=== PATIENT | female | born 1995 | race Caucasian/White ===

== ENCOUNTER 2018-02-16 17:10 | Emergency (ER) | payer OTHER, SELFPAY ==
[2018-02-16 17:14] VITALS: BP 118/79; PULSE 77; RESP 20; TEMP 37.1; O2SAT 100; BMI 21.9
[2018-02-16 18:03] VITALS: BP 125/60; PULSE 96; RESP 18; TEMP 36.8; O2SAT 100; BMI 21.9
--- NOTE | 2018-02-16 18:55 | HMH.EDUTC ---
[facility] Disposition Clinical Impression: Vaginal discharge Disposition: Home, Self-Care Condition on Discharge: Good Instructions: DI for Vaginal Discharge Additional Instructions: Follow up with OBGYN as advised in the [facility] today Follow up with family doctor for results of send out test as discussed in [facility] If symptoms worsen follow up with family doctor immediately or OBGYN for pelvic exam and treatment as discussed If any life threatening symptoms straight to ER Referrals: Ev Diaz MD [Primary Care Provider] - Time of Disposition: 19:15 Medical Decision Making - Medical Records Medical records reviewed: Yes: I reviewed the patient's medical records. - [facility] Inquiry Pt receiving controlled substance: No Reason not queried -: [facility] system downtime Vital Signs: 02/16/18 17:14 02/16/18 18:03 Temperature 98.7 F 98.3 F Temperature Source Tympanic Temporal Artery Scan Pulse Rate [Right Radial] 77 96 H Respiratory Rate 20 18 Blood Pressure [Right Arm] 118/79 125/60 Blood Pressure Mean [Right Arm] 92 81 Blood Pressure Source [Right Arm] Automatic Cuff Automatic Cuff Blood Pressure Position [Right Arm] Sitting Sitting 02 Sat by Pulse Oximetry 100 100 Oxygen Delivery Method Room Air Room Air - Lab Data Lab results reviewed: Yes: I reviewed the patient's lab results. - Reevaluation(s) Time: 19:10 Reevaluation #1: Discussed with patient options for treatment Patient has appointment on Friday for Vaginal exam by OBGYN State that she does not want to exams, Discussed other testing and options for patient if she did not want to have pap done here today. Urine collected and Urine preg. completed along with urine sent to lab for testing for Chlamydia and Gonnorhea due to unprotected sex, denies vaginal pain, denies odor to discharge, state that discharge is sometimes white, the thin, then sticky and constantly changing Recommended that patient call OBGYN and see if they may can work her in sooner. [facility] HPI - General Stated complaint: Cramping, Discharge, IUD Placed Time Seen by Provider: 02/16/18 19:00 Mode of Arrival: Ambulatory Source of Information: Patient Limitations: No Limitations Description of Symptoms (Recalled from Triage Doc. by RN): VAGINAL DISCHARGE HEENT Symptoms (Recalled from RN notes): No Resp Symptoms (Recalled from RN notes): No Skin Symptoms (Recalled from RN notes): No MS Symptoms (Recalled from RN notes): No Functional Status (Recalled from RN notes): N - History of Present Illness Provider Complaint: Patient states that she has noticed that for the last week she has been having a slight discharge from her vagina State that she had an IUD placed about 3 years ago and then about a week ago she began to have a slight discharge State that she has called the clinic that put in the IUD and they will see her next week and she has tried several other clinics and no one would see her where they didn't place the IUD State that she is not having any vaginal pain or bleeding States that she was worried where they couldn't see her till next week so she came into the clinic to get checked - Related Data Allergies Allergy/AdvReac Type Severity Reaction Status Date / Time No Known Allergies Allergy Verified 02/16/18 18:09 - Worker's Comp Is this a Worker's Comp case?: No [facility] History I have reviewed the patient's past medical history: Yes - Social History Alcohol Intake: never - Psychiatric History Expresses thoughts of harming self/others: None Suicide Plan Description: No Plan ROS Obtained: Yes All systems reviewed & no additional complaints - Genitourinary Female Genitourinary: Reports vaginal discharge, Denies vaginal dryness, Denies vaginal odor, Denies vaginal itching Physical Exam - General General appearance: alert, in no apparent distress - Respiratory Respiratory exam: Present: normal lung sounds bilaterally. Absent: respiratory distress - Cardiovascu
[2018-02-16 19:06] VITALS: BP 125/60; PULSE 96; RESP 18; TEMP 36.8
--- NOTE | 2018-02-16 19:08 | ED_ITS ---
[facility] [place] Dis[place] Clinical Impression: Vaginal discharge Disposition: Home, Self-Care Condition on Discharge: Good Instructions: DI for Vaginal Discharge Additional Instructions: Follow up with OBGYN as advised in the [facility] today Follow up with family doctor for results of send out test as discussed in [facility] If symptoms worsen follow up with family doctor immediately or OBGYN for pelvic exam and treatment as discussed If any life threatening symptoms straight to ER Referrals: Ev Diaz MD [Primary Care Provider] - Time of Disposition: 19:15 Medical Decision Making - Medical Records Medical records reviewed: Yes: I reviewed the patient's medical records. - [facility] Inquiry Pt receiving controlled substance: No Reason not queried -: [facility] system downtime Vital Signs: 02/16/18 17:14 02/16/18 18:03 Temperature 98.7 F 98.3 F Temperature Source Tympanic Temporal Artery Scan Pulse Rate [Right Radial] 77 96 H Respiratory Rate 20 18 Blood Pressure [Right Arm] 118/79 125/60 Blood Pressure Mean [Right Arm] 92 81 Blood Pressure Source [Right Arm] Automatic Cuff Automatic Cuff Blood Pressure Position [Right Arm] Sitting Sitting 02 Sat by Pulse Oximetry 100 100 Oxygen Delivery Method Room Air Room Air - Lab Data Lab results reviewed: Yes: I reviewed the patient's lab results. - Reevaluation(s) Time: 19:10 Reevaluation #1: Discussed with patient options for treatment Patient has appointment on Friday for Vaginal exam by OBGYN State that she does not want to exams, Discussed other testing and options for patient if she did not want to have pap done here today. Urine collected and Urine preg. completed along with urine sent to lab for testing for Chlamydia and Gonnorhea due to unprotected sex, denies vaginal pain, denies odor to discharge, state that discharge is sometimes white, the thin, then sticky and constantly changing Recommended that patient call OBGYN and see if they may can work her in sooner. [facility] [place] HPI - General Stated complaint: Cramping, Discharge, IUD Placed Time Seen by Provider: 02/16/18 19:00 Mode of Arrival: Ambulatory Source of Information: Patient Limitations: No Limitations Description of Symptoms (Recalled from Triage Doc. by RN): VAGINAL DISCHARGE HEENT Symptoms (Recalled from RN notes): No Resp Symptoms (Recalled from RN notes): No Skin Symptoms (Recalled from RN notes): No MS Symptoms (Recalled from RN notes): No Functional Status (Recalled from RN notes): N - History of Present Illness Provider Complaint: Patient states that she has noticed that for the last week she has been having a slight discharge from her vagina State that she had an IUD placed about 3 years ago and then about a week ago she began to have a slight discharge State that she has called the clinic that put in the IUD and they will see her next week and she has tried several other clinics and no one would see her where they didn't place the IUD State that she is not having any vaginal pain or bleeding States that she was worried where they couldn't see her till next week so she came into the clinic to get checked - Related Data Allergies Allergy/AdvReac Type Severity Reaction Status Date / Time No Known Allergies Allergy Verified 02/16/18 18:09 - Worker's Comp Is this a Worker's Comp case?: No [facility] History I have reviewed the patient's past medical history: Yes - Social History Alcohol Intake: nev
[2018-02-16 19:13] LABS: Apearance,Urine Clear (Clear); Blood, Urine Negative (Negative); Color,Urine Yellow (Yellow); Glucose,Urine (UA) Negative (Negative); Ketones,Urine Negative (Negative); Protein,Urine Negative (Negative); Specific Gravity, Urine 1.015 (1.005-1.030)
[2018-02-16 19:14] LABS: Bilirubin,Urine Negative (Negative); UTC Leukocyte Esterase,Urine Negative (Negative); UTC Nitrate,Urine Negative (Negative); Urobilinogen,Urine 0.2 EU/dl (0.2)
[2018-02-16 19:15] LABS: UTC Pregnancy Test, Urine Negative (Negative)
[2018-02-19 09:28] LABS: Neisseria gonorrhoeae, NAA Negative (Negative)
== END 2018-02-16 19:19 | disposition home or self-care (01) ==
LOC: ER 17:23 → UTC 17:25
PROVIDERS: Emergency Provider Nurse Practitioner; PCP Family Medicine
DX: N89.8 Other specified noninflammatory disorders of vagina (principal)
CPT/HCPCS: 81003; 81025; 87491; 87591; 99201

== ENCOUNTER → 2018-11-03 14:31 | Outpatient (POV) | payer OTHER, SELFPAY | PROVIDERS: Visit Provider Dermatology | DX: Z00.00 Encounter for general adult medical examination without abnormal findings (principal) ==

== ENCOUNTER → 2021-01-09 09:15 | Outpatient (CLI) | payer SELFPAY ==
[2021-01-09 09:38] LABS: Basophils # 0.1 K/mm3 (0-0.2); Basophils % 1.2 % (0.1-2.0); Eosinophils # 0.1 K/mm3 (0.0-0.4); Eosinophils % 2.3 % (0.1-12.0); Hematocrit 41.8 % (37.0-47.0); Hemoglobin 13.8 g/dL (12.2-16.2); Lymphocytes # 1.5 K/mm3 (0.7-4.5); Lymphocytes % 28.4 % (10-50); Mean Corpuscular Hemoglobin 29.9 pg (27.0-31.2); Mean Corpuscular Volume 90.6 fl (81-99); Mean Platelet Volume 9.5 fl (7.4-10.4); Monocytes # 0.3 K/mm3 (0.1-1.0); Monocytes % 6.3 % (1.7-9.3); Neutrophils # 3.3 K/mm3 (1.8-7.8); Neutrophils % 61.7 % (37.0-80.0); Platelet Count 207 K/mm3 (142-424); Red Blood Count 4.61 M/mm3 (4.20-5.40); Red Cell Distribution Width 13.2 % (11.5-17.5); White Blood Count 5.4 K/mm3 (4.8-10.8)
[2021-01-09 10:12] LABS: Triiodothryronine (T3) Uptake 32 % (23.5-40.5)
[2021-01-09 10:13] LABS: Free Thyroxine Index 2.1 ug/dL (5.93-13.13); T4 (Thyroxine) 6.7 ug/dl (5.53-11.0)
[2021-01-09 10:27] LABS: Thyroid Stimulating Hormone 3.25 uIU/mL (0.465-4.68)
[2021-01-10 22:07] LABS: Estradiol 67.8 pg/mL (.); FSH 4.8 mIU/mL (.); LH 20.8 mIU/mL (.)
== END ==
PROVIDERS: Visit Provider Nurse Practitioner Obstetrics & Gynecology
DX: N92.6 Irregular menstruation, unspecified (principal); R53.83 Other fatigue
CPT/HCPCS: 36415; 82670; 83001; 83002; 84436; 84443; 84479; 85025

== ENCOUNTER → 2022-09-16 07:52 | Outpatient (CLI) | payer SELFPAY ==
[2022-09-16 09:38] LABS: HCG,Quantitative 4395 mIU/ml (0-5.42)
== END ==
PROVIDERS: PCP Family Medicine; Visit Provider Obstetrics & Gynecology
DX: Z34.90 Encounter for supervision of normal pregnancy, unspecified, unspecified trimester (principal)
CPT/HCPCS: 36415; 84702

== ENCOUNTER → 2022-10-04 16:59 | Outpatient (CLI) | payer SELFPAY | PROVIDERS: Visit Provider Obstetrics & Gynecology | DX: Z34.90 Encounter for supervision of normal pregnancy, unspecified, unspecified trimester (principal) | CPT/HCPCS: 87086 ==

== ENCOUNTER → 2022-10-31 12:48 | Outpatient (CLI) | payer BC, SELFPAY ==
[2022-10-31 13:23] LABS: Basophils % 0.6 % (0.1-2.0); Hematocrit 36.5 % (37.0-47.0); Hemoglobin 11.8 g/dL (12.2-16.2); Lymphocytes # 1.3 K/mm3 (0.7-4.5); Lymphocytes % 29.8 % (10-50); Mean Corpuscular HGB Conc 32.2 g/dL (31.8-35.4); Mean Corpuscular Volume 96.1 fl (81-99); Mean Platelet Volume 10.4 fl (7.4-10.4); Monocytes # 0.3 K/mm3 (0.1-1.0); Monocytes % 5.9 % (1.7-9.3); Neutrophils # 2.6 K/mm3 (1.8-7.8); Neutrophils % 62.6 % (37.0-80.0); Platelet Count 199 K/mm3 (142-424); Red Cell Distribution Width 12.8 % (11.5-17.5); White Blood Count 4.2 K/mm3 (4.8-10.8)
[2022-11-16 21:17] LABS: HIV Screen 4th Generation wRfx Non Reactive; Hepatitis B Surface Antigen Negative; Hepatitis C Antibody <0.1
[2022-11-16 21:18] LABS: Rapid Plasma Reagin Ab Titer Non Reactive; Rubella Antibodies, IgG 1.93
== END ==
PROVIDERS: PCP Family Medicine; Visit Provider Obstetrics & Gynecology
DX: Z34.90 Encounter for supervision of normal pregnancy, unspecified, unspecified trimester (principal)
CPT/HCPCS: 36415; 85025; 86592; 86703; 86762; 86850; 87340; 87380; G0432

== ENCOUNTER → 2023-01-03 13:27 | Outpatient (CLI) | payer OTHER, SELFPAY ==
--- NOTE | 2023-01-03 13:28 | US_ITS ---
FINAL REPORT CLINICAL HISTORY: OB complete FINDINGS: There is a single live intrauterine gestation. Presentation is breech. The cervix is closed and measures 4.1 cm. Placenta is anterior, grade 1. movement is noted. Heart rate is identified and measured at 149 beats per minute. Three-vessel cord with satisfactory umbilical cord insertion. Four-chamber heart is noted. brain and ventricles are unremarkable. Chest and diaphragm are unremarkable. ABDOMEN: Both kidneys are unremarkable. Stomach is unremarkable. SPINE: No anomalies identified. Both arms and legs noted. AMNIOTIC FLUID: Appropriate amount. MEASUREMENTS: ULTRASOUND AGE: 20 weeks 2 days. GESTATION AGE: 20 weeks 5 days. ESTIMATED WEIGHT: 359 g GROWTH PERCENTILE: 34% LMP percentile BPD: 4.5 cm corresponding with 19 weeks 5 days. OFD: 6.2 cm corresponding to 20 weeks 6 days. HC: 16.9 cm corresponding with 19 weeks 4 days. AC: 16.1 cm corresponding with 21 weeks 2 days. FL: 3.2 cm corresponding with 20 weeks 1 days. CEREBELLUM: 2.0 cm corresponding with 20 weeks 3 days. HUMERUS: 3.0 cm corresponding with 20 weeks 1 days. HC/AC: 1.05 CI: 73% FL/BPD: 72% FL/AC: 20% IMPRESSION: Single living IUP with an ultrasound age of 20 weeks 2 days. No gross anomalies noted. Reviewed, Interpreted and Dictated by Dmitriy Borrero III, MD Transcribed by Martha Benitez Authenticated and [facility]
== END ==
PROVIDERS: PCP Family Medicine; Visit Provider Obstetrics & Gynecology
DX: Z34.90 Encounter for supervision of normal pregnancy, unspecified, unspecified trimester (principal); Z3A.19 19 weeks gestation of pregnancy
CPT/HCPCS: 76811

== ENCOUNTER → 2023-02-06 09:28 | Outpatient (CLI) | payer OTHER, SELFPAY ==
[2023-02-06 09:57] LABS: Basophils # 0.1 K/mm3 (0-0.2); Basophils % 0.8 % (0.1-2.0); Eosinophils # 0.1 K/mm3 (0.0-0.4); Hematocrit 34.8 % (37.0-47.0); Hemoglobin 11.7 g/dL (12.2-16.2); Lymphocytes # 1.2 K/mm3 (0.7-4.5); Lymphocytes % 19.6 % (10-50); Mean Corpuscular HGB Conc 33.8 g/dL (31.8-35.4); Mean Corpuscular Hemoglobin 31.2 pg (27.0-31.2); Mean Corpuscular Volume 92.5 fl (81-99); Mean Platelet Volume 9.9 fl (7.4-10.4); Monocytes # 0.4 K/mm3 (0.1-1.0); Neutrophils # 4.5 K/mm3 (1.8-7.8); Neutrophils % 72.6 % (37.0-80.0); Platelet Count 184 K/mm3 (142-424); Red Blood Count 3.76 M/mm3 (4.20-5.40); Red Cell Distribution Width 13.6 % (11.5-17.5); White Blood Count 6.2 K/mm3 (4.8-10.8)
[2023-02-06 10:15] LABS: Glucose,Fasting 77 mg/dl (74-100)
[2023-02-06 11:48] LABS: Glucose 1 Hour 75 mg/dL (74-100)
== END ==
PROVIDERS: PCP Family Medicine; Visit Provider Obstetrics & Gynecology
DX: Z34.90 Encounter for supervision of normal pregnancy, unspecified, unspecified trimester (principal); Z3A.19 19 weeks gestation of pregnancy
CPT/HCPCS: 36415; 82951; 85025

== ENCOUNTER 2023-03-26 10:23 | Outpatient (CLI) | payer OTHER, SELFPAY | END 2023-03-26 12:10 | disposition home or self-care (01) | LOC: LAB 10:24 → INF 12:47 | PROVIDERS: PCP Family Medicine; Visit Provider Obstetrics & Gynecology | DX: O26.899 Other specified pregnancy related conditions, unspecified trimester (principal); Z67.91 Unspecified blood type, Rh negative | CPT/HCPCS: 36415; 96372; J2790 ==

== ENCOUNTER → 2023-03-28 08:57 | Outpatient (CLI) | payer OTHER, SELFPAY ==
--- NOTE | 2023-03-28 08:57 | US_ITS ---
FINAL REPORT CLINICAL HISTORY: sga COMPARISON: 01/03/2023 FINDINGS: There is a single live intrauterine gestation. Presentation is cephalic. The cervix is closed and measures 3.2 cm. Placenta is anterior grade 1. movement is noted. heart rate documented at 135 beats per minute. Three-vessel cord with satisfactory umbilical cord insertion. Four-chamber heart is noted. brain and ventricles are unremarkable. Chest and diaphragm are unremarkable. ABDOMEN: Both kidneys are unremarkable. Stomach is unremarkable. SPINE: No anomalies identified. AMNIOTIC FLUID: Appropriate amount. MEASUREMENTS: ULTRASOUND AGE: 32 weeks 1 days. GESTATION AGE: 32 weeks 5 days. ESTIMATED WEIGHT: 1870 g GROWTH PERCENTILE: 19 % BPD: 8.06 cm consistent with 32 weeks 3 days. OFD: 10.39 cm consistent with 32 weeks 4 days. HC: 29.21 cm consistent with 32 weeks 2 days. AC: 27.90 cm consistent with 32 weeks 0 days. FL: 6.11 cm consistent with 31 weeks 6 days. HC/AC: 1.05 CI: 78% FL/BPD: 76% FL/AC: 22% IMPRESSION: Single living IUP with an ultrasound age of 32 weeks 1 day. Reviewed, Interpreted and Dictated by Dmitriy Borrero III, MD Transcribed by Janice Daley Authenticated and . [facility]
== END ==
PROVIDERS: PCP Family Medicine; Visit Provider Obstetrics & Gynecology
DX: O36.5990 Maternal care for other known or suspected poor fetal growth, unspecified trimester, not applicable or unspecified (principal)
CPT/HCPCS: 76816

== ENCOUNTER → 2023-03-31 10:25 | Outpatient (CLI) | payer OTHER, SELFPAY ==
--- NOTE | 2023-03-31 10:29 | US_ITS ---
FINAL REPORT CLINICAL HISTORY: SGA/ AND CHECK JUANJO FINDINGS: There is a single live intrauterine gestation. Presentation is cephalic. The cervix measures 3.2 cm. The placenta is anterior. Cardiac activity is confirmed at 155 bpm. BREATHIN MOVEMENT: 2 TONE: 2 FLUID VOLUME: 2 BPP SCORE: 8 JUANJO: 11.56 cm IMPRESSION: Single living IUP with a gestational age of 33 weeks 1 day. Reviewed, Interpreted and Dictated by Zay Yip MD Transcribed by Radha Sherwood Authenticated and [facility]
== END ==
PROVIDERS: PCP Family Medicine; Visit Provider Obstetrics & Gynecology
DX: O36.5990 Maternal care for other known or suspected poor fetal growth, unspecified trimester, not applicable or unspecified (principal)
CPT/HCPCS: 76819

== ENCOUNTER → 2023-04-21 17:04 | Outpatient (CLI) | payer OTHER, SELFPAY | PROVIDERS: Visit Provider Obstetrics & Gynecology | DX: Z34.90 Encounter for supervision of normal pregnancy, unspecified, unspecified trimester (principal) | CPT/HCPCS: 86403 ==

== ENCOUNTER 2023-05-20 07:56 | Inpatient (IN) | payer OTHER, SELFPAY ==
[2023-05-20 08:16] VITALS: BMI 25.9
[2023-05-20 08:43] LABS: Basophils # 0.1 K/mm3 (0-0.2); Basophils % 0.5 % (0.1-2.0); Eosinophils # 0.1 K/mm3 (0.0-0.4); Eosinophils % 0.4 % (0.1-12.0); Hematocrit 40.6 % (37.0-47.0); Hemoglobin 13.9 g/dL (12.2-16.2); Lymphocytes # 2.7 K/mm3 (0.7-4.5); Mean Corpuscular HGB Conc 34.3 g/dL (31.8-35.4); Mean Corpuscular Hemoglobin 31.2 pg (27.0-31.2); Mean Platelet Volume 11.8 fl (7.4-10.4); Monocytes # 0.7 K/mm3 (0.1-1.0); Monocytes % 5.3 % (1.7-9.3); Neutrophils # 8.8 K/mm3 (1.8-7.8); Neutrophils % 71.7 % (37.0-80.0); Platelet Count 180 K/mm3 (142-424); Red Blood Count 4.46 M/mm3 (4.20-5.40); Red Cell Distribution Width 13.8 % (11.5-17.5); White Blood Count 12.3 K/mm3 (4.8-10.8)
--- NOTE | 2023-05-20 08:48 | EXP.OB.APHP ---
OB - H&P: HPI Antepartum History of Present Illness Chief complaint: Leakage of fluid, painful uterine contractions History of present illness: Mrs Brenda Flores is a 28 yo at 40w2d who presents to [facility] Labor and Delivery for leakage of fluid that started at 0400 and regular, painful uterine contractions that started at 0500 this morning. She states contractions are right on top of each other. GBS negative. Baby is very active. History of Present Criteria for establishing EDC:: LMP confirmed by 1st trimester US care: good care Ultrasounds: normal mid trimester US Obstetrical complications: none Medical complications: none Labs Blood type: B (-) negative Rubella: immune RPR/VDRL: nonreactive GBS status: negative HBsAG: negative PFSH [facility] Disclaimer: The information contained in this section may have been updated after the patient was seen, as this information can be updated by other users. Medical History (Updated 05/20/23 @ 09:03 by Shama Mock DO) 40 weeks gestation of Active labor Blood in urine GERD (gastroesophageal reflux disease) Nausea Rh negative state in antepartum period Spontaneous rupture of membranes Surgical History No history of previous surgery Family History Grandfather Hypertension Diabetes Grandmother Cancer Social History Smoking Status: Former smoker alcohol intake: current substance use type: denies use current occupational status: other Travel in the last 8 weeks: None Review of Systems Review of Systems Review of systems:: pertinent systems reviewed and negative unless documented below Meds Home Medications and Allergies Home Medications Medication Instructions Recorded Confirmed Type pantoprazole 40 mg tablet,delayed 40 mg PO DAILY Acid reflux 05/20/23 05/20/23 History release (Protonix) vit no.95-ferrous 1 tab PO DAILY Supplement 05/20/23 05/20/23 History fumarate 28 mg-folic acid 800 mcg tablet () New Prescriptions to Start Prescriptions: Allergies Allergy/AdvReac Type Severity Reaction Status Date / Time No Known Allergies Allergy Verified 05/12/23 11:26 OB - H&P: Exam Constitutional mild distress Routine HEENT Exam Head: Present normocephalic and atraumatic Eye: Absent conjunctivae pink ENT: Present mucous membranes moist and dentition normal Routine Neck Exam Present full ROM Routine Respiratory Exam Present CTA bilaterally and normal respiratory effort Routine Cardiovascular Exam Present RRR Routine Abdominal Exam Present soft (Gravid); Absent tenderness Routine Rectal Exam Patient deferred: visual exam Routine Exam External: Present normal urethra appearance; Absent erythema, swelling, lesions or lacerations Detailed Labor and Delivery Exam Dilation (cm): 9 Effacement (%): 90 Cervix position: anterior station: -1 Consistency: soft Membranes: spontaneously ruptured (0400 at home) Baseline heart rate: 120 terminal operator variability: Moderate (11-25) OB - A/P Antepartum (1) 40 weeks gestation of : Status: Acute (2) Active labor: Status: Acute (3) Spontaneous rupture of membranes: Status: Acute (4) Rh negative state in antepartum period: Status: Acute Additional Plan Planning to breastfeed?: Yes Additional Information:: Admit to [facility] for active labor GBS negative Close monitoring
[2023-05-20 09:00] VITALS: BP 117/60; PULSE 72; RESP 18; TEMP 36.6; O2SAT 98; BMI 25.9
--- NOTE | 2023-05-20 09:04 | EXP.DN ---
Delivery Note Delivery Date:: 05/20/23 Delivery Time:: : Anesthesia Type: None Was labor medically induced?: No Gestational age (weeks): 40 Infant delivered prior to 39 weeks?: No Infant Gender: Male at 1 minute: 9 at 5 minutes: 9 LAC or MLE?: LAC Delivery Procedure:: Mom complete without epidural. Pushed for approximately 12 minutes. Head delivered spontaneously over intact perineum in TRINITY position. No nuchal cord. Anterior shoulder delivered with gentle downward pressure. Posterior shoulder and remainder of body delivered spontaneously. Baby placed on maternal abdomen, mouth and nares bulb suctioned, warmed/dried and stimulated. Delayed cord clamping was performed for 60 seconds. Cord was clamped and cut by mom. Cord blood was obtained. Placenta delivered spontaneously and intact. Small second degree laceration repaired with 3-0 Vicryl. Hemostasis noted. Mom and baby were skin to skin and doing well after delivery. Live male baby (baby's name is Gabriele) APGARs 9, 9 EBL 100 mL Placental Delivery Description: Spontaneous
[2023-05-20 16:25] VITALS: BP 111/61; PULSE 95; RESP 18; TEMP 36.6; O2SAT 100
[2023-05-20 20:40] VITALS: BP 131/65; PULSE 70; RESP 16; TEMP 36.6; O2SAT 99
[2023-05-20 20:56] LABS: Coronavirus 19, PCR Not Detected (NotDetected); Influenza A, PCR Not Detected (NotDetected); Influenza B, PCR Not Detected (NotDetected)
[2023-05-21 04:08] VITALS: BP 121/57; PULSE 65; RESP 16; TEMP 36.6; O2SAT 97
[2023-05-21 08:35] LABS: Microscopic, Urine URINE MICROSCOPIC (MICROSCOPIC)
[2023-05-21 08:49] LABS: Appearance,Urine CLEAR (Clear); Bilirubin,Urine Negative (Negative); Blood, Urine 3+ (Negative); Color,Urine YELLOW (Yellow); Glucose,Urine (UA) Negative (Negative); Ketones,Urine Negative (Negative); Leukocyte Esterase,Urine TRACE (Negative); Nitrate,Urine Negative (Negative); PH,Urine 6.5 (5.0-8.5); Protein,Urine Negative (Negative); Urobilinogen,Urine 0.2 EU/dl (0.2)
[2023-05-21 09:00] LABS: Bacteria,Urine 1+ /lpf; RBC,Urine 20-50 #/hpf (0-3); Squamous Epithelial Cell,Urine Occasional #/hpf (0-5); WBC,Urine Occasional #/hpf (0-3)
[2023-05-21 09:01] LABS: Benzodiazepines Screen,Urine Negative ng/ml (<200)
[2023-05-21 09:02] LABS: Amphetamine/Metha Screen,Urine Negative ng/ml (<1000); Barbiturates Screen,Urine Negative ng/ml (<200)
[2023-05-21 09:03] LABS: Cannabinoid Screen,Urine Negative ng/ml (<50)
[2023-05-21 09:04] LABS: Cocaine Screen,Urine Negative ng/ml (<300); Methadone Screen,Urine Negative ng/ml (<300)
[2023-05-21 09:05] LABS: Opiate Screen,Urine Negative ng/ml (<300)
[2023-05-21 09:06] LABS: Phencyclidine Screen,Urine Negative ng/ml (<25)
--- NOTE | 2023-05-21 09:45 | P.PN_ITS ---
Subjective *Date: 05/21/23 *Time: 09:49 Interval history: PPD # 1 s/p Feeling well. Breast feeding. Appropriate lochia. Voiding without difficulty and passing flatus. Tolerating regular diet. Denies fever/chills, chest pain and shortness of breath. No headaches or vision changes. Denies swelling. Ambulating well ad nakul. Medical Exam Vital signs and Labs for Last 24 Hours: Vital Signs Temp Pulse Resp BP Pulse Ox 05/21/23 04:08 97.9 F 65 16 121/57 L 97 05/20/23 20:40 98 F 70 16 131/65 99 05/20/23 16:25 97.8 F 95 H 18 111/61 100 Laboratory Results - last 24 hr 05/20/23 08:00: Antibody Identification Anti-D 05/20/23 20:48: SARS-CoV-2 (PCR) Not detected, Influenza A Untype (PCR) Not detected, Influenza Type B (PCR) Not detected 05/21/23 08:30: Urine Color Yellow, Urine Appearance Clear, Urine pH 6.5, Ur Specific [place] 1.010, Urine Protein Negative, Urine Glucose (UA) Negative, Urine Ketones Negative, Urine Blood 3+, Urine Nitrate Negative, Urine Bilirubin Negative, Urine Urobilinogen 0.2, Ur Leukocyte Esterase Trace, Urine RBC 20-50, Urine WBC Occasional, Ur Squamous Epith Cells Occasional, Urine Bacteria 1+ 05/21/23 08:30: Urine Opiates Screen Negative, Urine Methadone Screen Negative, Ur Barbituates Screen Negative, Ur Phencyclidine Scrn Negative, Ur Amphetamines Screen Negative, U Benzodiazepines Scrn Negative, Urine Cocaine Screen Negative, U Marijuana (THC) Screen Negative I & O for Labs for Last 24 Hours: Intake & Output 05/18/23 05/19/23 05/20/23 05/21/23 23:59 23:59 23:59 23:59 Weight 141 lb 15.996 oz Head: Present atraumatic and normocephalic ENT: Present normal exam and mucous membranes moist Neck: Present full ROM Respiratory: Present CTA bilaterally and normal respiratory effort Cardiac: Present Reg Rate and Rhythm GI: Present soft and normal bowel sounds; Absent distention or tenderness Comments:: Uterine fundus firm and below umbilicus Rectal (female): Present deferred (female): Present deferred Extremities: Present full ROM; Absent edema or calf tenderness Neuro: Present alert, awake, oriented x 3 and moves all extremities Assessment and Plan *Assessment and plan (1) 40 weeks gestation of : Status: Acute Category: Medical Code(s): Z3A.40 - 40 weeks gestation of (2) Active labor: Status: Acute Category: Medical (3) Spontaneous rupture of membranes: Status: Acute Category: Medical (4) Rh negative state in antepartum period: Status: Acute Category: Medical Code(s): O26.899 - Other specified related conditions, unspecified trimester; Z67.91 - Unspecified blood type, Rh negative Plan Continue routine care Encouraged increased ambulation Baby's ABO RH: AB negative Plan d/c home PPD # 2
[2023-05-21 14:57] LABS: Hematocrit 34.3 % (37.0-47.0); Hemoglobin 11.8 g/dL (12.2-16.2)
[2023-05-22 08:37] VITALS: BP 119/69; PULSE 73; RESP 18; TEMP 36.6; O2SAT 98
--- NOTE | 2023-05-22 08:38 | EXP.DC.SUM ---
General Admission date:: 05/20/23 Discharge date: 05/22/23 HPI HPI HPI: PPD # 2 s/p Sitting comfortably in bed. Pain is controlled. Light lochia. She is breast feeding. Voiding without difficulty and passing flatus. Tolerating regular diet. Denies fever/chills, chest pain and shortness of breath. No headaches or vision changes. Denies swelling. Ambulating well ad nakul. Hospital Course Hospital Course Hospital Course: Mrs Brenda Flores is a 28 yo at 40w2d who presents to [facility] Labor and Delivery for leakage of fluid that started at 0400 and regular, painful uterine contractions that started at 0500 this morning. She states contractions are right on top of each other. GBS negative. Baby is very active. She was admitted for active labor. Upon arrival to L&D she was 8-9 cm dilated, 0 station. She had a normal spontaneous vaginal delivery on 05/20/23 at 0823. She delivered a little boy (baby's name is Gabriele) weighing 7 lb 0 oz. APGARs 9, 9. EBL 100 mL. She did well . Pain controlled. She is breast feeding. Light lochia. Voiding without difficulty and passing flatus. Tolerating regular diet. Denies fever/chills, chest pain and shortness of breath. No headaches or vision changes. Denies swelling. Ambulating well ad nakul. Vital signs stable, afebrile. Heart regular rate and rhythm. Lungs clear to auscultation. Abdomens soft, nontender. No lower extremity edema. Normal hospital course. She was discharged home PPD # 2. Exam Data for Last 24 hours Vital signs and Labs for Last 24 Hours: Temp Pulse Resp BP Pulse Ox 97.9 F 65 16 121/57 L 97 05/21/23 04:08 05/21/23 04:08 05/21/23 04:08 05/21/23 04:08 05/21/23 04:08 Laboratory Results - last 24 hr 05/21/23 08:30: Urine Color Yellow, Urine Appearance Clear, Urine pH 6.5, Ur Specific [address] 1.010, Urine Protein Negative, Urine Glucose (UA) Negative, Urine Ketones Negative, Urine Blood 3+, Urine Nitrate Negative, Urine Bilirubin Negative, Urine Urobilinogen 0.2, Ur Leukocyte Esterase Trace, Urine RBC 20-50, Urine WBC Occasional, Ur Squamous Epith Cells Occasional, Urine Bacteria 1+ 05/21/23 08:30: Urine Opiates Screen Negative, Urine Methadone Screen Negative, Ur Barbituates Screen Negative, Ur Phencyclidine Scrn Negative, Ur Amphetamines Screen Negative, U Benzodiazepines Scrn Negative, Urine Cocaine Screen Negative, U Marijuana (THC) Screen Negative 05/21/23 14:48: Hgb 11.8 L, Hct 34.3 L I & O for Last 24 hours: Intake & Output 05/19/23 05/20/23 05/21/23 05/22/23 23:59 23:59 23:59 23:59 Weight 141 lb 15.996 oz Constitutional Constitutional: no acute distress *Routine HEENT Exam Head: Present normocephalic and atraumatic Eye: Absent conjunctivae pink ENT: Present mucous membranes moist and dentition normal *Routine Neck Exam Neck: Present full ROM *Routine Respiratory Exam Respiratory: Present CTA bilaterally and normal respiratory effort *Routine Cardiovascular Exam Cardiovascular: Present RRR *Routine Abdominal Exam Abdominal: Present soft and normoactive bowel sounds; Absent tenderness or distended *Routine Rectal Exam Patient deferred: visual exam *Routine Exam Patient deferred: external exam *Routine Extremities Exam Extremities: Present full ROM; Absent edema or calf tenderness *Routine Neurological Exam Neurological: Present alert, oriented X3 and moving all extremities Routine Psychiatric Exam Psychiatric: Present normal affect and cooperative Results Data Completed and Pending Labs on day of discharge: Labs from last 24 hours 05/21/23 05/21/23 05/21/23 14:48 08:30 08:30 Hgb 11.8 L Hct 34.3 L Urine Color Yellow Urine Appearance Clear Urine pH 6.[address] 1.010 Urine Protein Negative Urine Glucose (UA) Negative Urine Ketones Negative Urine Blood 3+ Urine Nitrate Negative Urine Bilirubin Negative Urine Urobilinogen 0.2 Ur Leukocyte Esterase Trace Urine RBC 20-50
== END 2023-05-22 12:55 | disposition home or self-care (01) | DRG 807 ==
PROVIDERS: Admitting Provider Obstetrics & Gynecology; Visit Provider Obstetrics & Gynecology
DX: O70.1 Second degree perineal laceration during delivery (principal); Z37.0 Single live birth; Z3A.40 40 weeks gestation of pregnancy
CPT/HCPCS: 59409; 36415; 59025; 80305; 81001; 85014; 85018; 85025; 86850; 86870; 87636; C9803; G0378; U0003; U0005

== ENCOUNTER → 2023-06-10 11:41 | Outpatient (CLI) | payer OTHER, SELFPAY | PROVIDERS: PCP Family Medicine; Visit Provider Nurse Practitioner Obstetrics & Gynecology | DX: Z39.1 Encounter for care and examination of lactating mother (principal) ==

== ENCOUNTER 2024-08-09 09:26 | Outpatient (CLI) | payer OTHER, SELFPAY ==
[2024-08-09 11:02] LABS: Alanine Aminotransferase 11 U/L (12-78); Albumin Level 4.2 g/dl (3.5-5.0); Albumin/Globulin Ratio 1.3 (1.1-1.8); Alkaline Phosphatase 50 U/L (38-126); Anion Gap 9.4 mEq/L (5-15); Aspartate Amino Transferase 21 U/L (14-36); Bilirubin,Total 0.5 mg/dl (0.2-1.3); Blood Urea Nitrogen 15 mg/dl (7-17); Calcium 9.2 mg/dl (8.4-10.2); Carbon Dioxide 26 mmol/L (22.0-30.0); Chloride 106 mmol/L (98-107); Chol/HDL Ratio 3.4 (1-3.5); Cholesterol 203 mg/dl (140-200); Estimated Glomerular Filt Rate 117 ml/min (>60); GFR (African American) 141 ML/MIN (>60); Globulin 3.2 g/dL (1.3-3.2); Glucose 85 mg/dl (74-100); HDL Cholesterol 59 mg/dl (40-60); Potassium 4.4 mmoL/L (3.5-5.1); Sodium 137 mmol/L (136-145); Total Protein,Serum 7.4 g/dl (6.3-8.2); Triglycerides 39 mg/dl (30-150); VLDL Cholesterol 8 mg/dL (0-40)
[2024-08-09 11:14] LABS: Direct LDL Cholesterol 108.54 mg/dL (100-129)
[2024-08-09 11:19] LABS: 25-OH Vitamin D, Total 46.1 ng/mL (30-100)
[2024-08-09 11:26] LABS: Basophils % 0.6 % (0.1-2.0); Eosinophils # 0.1 K/mm3 (0.0-0.4); Eosinophils % 1.4 % (0.1-12.0); Hematocrit 42.9 % (37.0-47.0); Hemoglobin 13.9 g/dL (12.2-16.2); Lymphocytes # 1.7 K/mm3 (0.7-4.5); Lymphocytes % 26.7 % (10-50); Mean Corpuscular HGB Conc 32.3 g/dL (31.8-35.4); Mean Corpuscular Hemoglobin 30.6 pg (27.0-31.2); Mean Corpuscular Volume 94.8 fl (81-99); Mean Platelet Volume 10.2 fl (7.4-10.4); Monocytes # 0.3 K/mm3 (0.1-1.0); Monocytes % 4.4 % (1.7-9.3); Neutrophils # 4.3 K/mm3 (1.8-7.8); Neutrophils % 66.9 % (37.0-80.0); Platelet Count 221 K/mm3 (142-424); Red Blood Count 4.53 M/mm3 (4.20-5.40); Red Cell Distribution Width 13.3 % (11.5-17.5); White Blood Count 6.4 K/mm3 (4.8-10.8)
[2024-08-09 11:33] LABS: Thyroid Stimulating Hormone 3.21 uIU/mL (0.465-4.68)
[2024-08-09 11:53] LABS: Vitamin B12 768 pg/mL (239-931)
== END 2024-08-09 23:59 | disposition home or self-care (01) ==
LOC: LAB 09:28
PROVIDERS: PCP Nurse Practitioner Family; Visit Provider Nurse Practitioner Family
DX: Z00.00 Encounter for general adult medical examination without abnormal findings (principal); L70.0 Acne vulgaris; R53.81 Other malaise; R79.89 Other specified abnormal findings of blood chemistry
CPT/HCPCS: 36415; 80050; 80053; 80061; 82306; 82533; 82607; 82728; 84443; 85025

== ENCOUNTER 2025-11-03 16:01 | Outpatient (CLI) | payer OTHER, SELFPAY ==
[2025-11-03 16:28] LABS: Hematocrit 40.8 % (37.0-47.0); Hemoglobin 13.7 g/dL (12.2-16.2); Immature Granulocytes % 0.1 %; Mean Corpuscular HGB Conc 33.6 g/dL (31.8-35.4); Mean Corpuscular Hemoglobin 30.1 pg (27.0-31.2); Mean Corpuscular Volume 89.7 fl (81-99); Nucleated Red Blood Cells % 0 %; Platelet Count 233 K/mm3 (142-424); Red Blood Count 4.55 M/mm3 (4.20-5.40); Red Cell Distribution Width-SD 40.7 fL; White Blood Count 7.9 K/mm3 (4.8-10.8)
[2025-11-03 17:19] LABS: Alanine Aminotransferase 15 U/L (12-78); Albumin Level 4.9 g/dl (3.5-5.0); Albumin/Globulin Ratio 1.5 (1.1-1.8); Alkaline Phosphatase 59 U/L (38-126); Anion Gap 11.7 mEq/L (5-15); Aspartate Amino Transferase 21 U/L (14-36); Bilirubin,Total 0.6 mg/dl (0.2-1.3); Blood Urea Nitrogen 12 mg/dl (7-17); Calcium 9.6 mg/dl (8.4-10.2); Carbon Dioxide 23 mmol/L (22.0-30.0); Chloride 102 mmol/L (98-107); Creatinine,Serum 0.70 mg/dl (0.52-1.04); Estimated Glomerular Filt Rate 97 ml/min (>60); GFR (African American) 117 ML/MIN (>60); Globulin 3.2 g/dL (1.3-3.2); Glucose 89 mg/dl (74-100); Potassium 3.7 mmoL/L (3.5-5.1); Sodium 133 mmol/L (136-145); Total Protein,Serum 8.1 g/dl (6.3-8.2)
[2025-11-03 17:38] LABS: 25-OH Vitamin D, Total 45.6 ng/mL (30-100)
[2025-11-03 17:47] LABS: Hemoglobin A1C 5.1 % (4.0-6.0)
[2025-11-03 17:49] LABS: Thyroid Stimulating Hormone 3.81 uIU/mL (0.465-4.68)
[2025-11-04 08:16] LABS: FSH 0.5 mIU/mL (.); LH <0.3 mIU/mL (.)
[2025-11-04 11:12] LABS: Testosterone,Total 34 ng/dL (8-60)
== END 2025-11-03 23:59 | disposition home or self-care (01) ==
LOC: LAB 16:02
PROVIDERS: PCP Nurse Practitioner Family; Visit Provider Obstetrics & Gynecology
DX: N92.6 Irregular menstruation, unspecified (principal)
CPT/HCPCS: 36415; 80053; 82166; 82306; 82670; 83001; 83002; 83036; 84144; 84403; 84443; 84702; 85025

== ENCOUNTER 2025-11-18 20:59 | Emergency (ER) | payer OTHER, SELFPAY ==
--- OUTSIDE RECORDS SUMMARY | 2025-01-31 10:45 | XMS_ITS ---
Author Organization [facility] Address [address] [place] [address] Care Team Providers Care Hole Digger Name Role Phone Dorothea Nicolle Primary Care Provider [phone] REASON FOR VISIT Labs Encounters Encounter Location Date Provider Diagnosis [facility] [address] [place] [address] 01/31/2025 Nicolle Piedra Plan Of Treatment No Information Progress Notes * Brenda FLROES LDOB:[birth year] (30 yo F)Acc No.[id number]:01/31/2025 LABS Patient: Brenda DUNBAR Provider: RANJIT Zelaya :1995 A ge:29 Y S ex:Female Date:01/31/2025 Address:[address] [place], [place] [id number] Subjective: * Chief Complaints: * 1 . Labs. * Medical History: Objective: * Vitals: Assessment: Plan: * Treatment: * * Electronic signature of Maricel Piedra APRN on 11/18/2025 at 09:45 PM EST Sign off status: Pending * Provider: RANJIT Zelaya Date: 0 01/31/2025 Generated for Kelsey escobedo/Priscilla/eTransmitting on: 1 01/19/2025 09:45 PM EST
--- OUTSIDE RECORDS SUMMARY | 2025-06-13 04:00 | XMS_ITS ---
Author Organization [facility] Address [address] [place], [place] [address] Care Team Providers Care Call Center Agent Name Role Phone Nicolle Piedra Primary Care Provider Nicolle Medina Unavailable [phone] REASON FOR VISIT 1 week F/U Encounters Encounter Location Date Provider Diagnosis [facility] [address] [place], [place] [address] 06/13/2025 Nicolle Medina Plan Of Treatment No Information Progress Notes * Brenda FLORES LDOB:[birth year] (30 yo F)Acc No.[id number]:06/13/2025 Progress Notes Patient: Brenda DUNBAR Provider: JOHNNA Cedillo :1995 A ge:30 Y S ex:Female Date:06/13/2025 Address:[address] [place] [address] [place], [id number] Pcp:Nicolle Piedra Subjective: * Chief Complaints: * 1 . 1 week F/U. * Medical History: Objective: * Vitals: Assessment: Plan: * Treatment: * * Electronic signature of Maricel Medina PA-C on 11/18/2025 at 09:45 PM EST Sign off status: Pending * Provider: JOHNNA Cedillo Date: 0 06/13/2025 Generated for Printi ng/Faxing/eTransmitting on: 1 01/19/2025 09:45 PM EST
[2025-11-18 21:07] VITALS: BP 111/82; PULSE 101; RESP 16; TEMP 37.2; O2SAT 99; BMI 24.5
--- NOTE | 2025-11-18 21:13 | HMH.EDGENADL ---
Discharge Plan Disposition Patient Disposition: Home, Self-Care Prescriptions Prescriptions: New nitrofurantoin monohyd/m-cryst [Macrobid] 100 mg capsule 100 mg PO BID 5 Days Qty: 10 0RF Rx Instructions: must administer with a meal/food No Action Classic 28 mg iron- 800 mcg tablet 1 tab PO DAILY promethazine 12.5 mg tablet 12.5 mg PO TID PRN (Reason: nausea and vomiting) Qty: 90 0RF Referrals Follow up/Referrals: Nicolle Piedra APRN [Primary Care Provider, Medical] - See instructions Activity Restrictions/Add. Instructions Additional Instructions/Restrictions: Continue to take your promethazine as prescribed. Continue to hydrate well by drinking plenty of fluids. You were also found to have bacteria in your urine and are being prescribed a course of antibiotics. Take this as prescribed. If you develop any new or worsening symptoms, or if you become concerned for your help for any reason, return to the emergency department for evaluation Clinical Impressions Clinical Impression: Nausea and vomiting during prior to 22 weeks gestation, Asymptomatic bacteriuria during Instructions Patient Instructions: DI for Diarrhea and Traveler's Diarrhea in Adults, DI for Diarrhea and Traveler's Diarrhea in Children, DI for Nausea in Adults, DI for Nausea in Children Print Language Print Language: Wolof Discharge ED Provider: Duke Sinha Adult HPI General Chief complaint: Nausea/Vomiting/Diarrhea Stated complaint: 6 weeks ,vomiting Time Seen by Provider: 11/18/25 21:03 Mode of Arrival: Ambulatory Source of Information: Patient Description of Symptoms (Recalled from ER Triage Doc. by RN): Pt states she has been unable to keep anything down since last night. Pt is 6 weeks and states this isnt like her previous History of Present Illness HPI narrative: Brenda Arzate is a 30y female G2, P1 who presents to the emergency department for complaints of nausea and vomiting while approximately 6 weeks . Patient states that her last menstrual period was on October 04. She has had positive home test and blood test confirming . Her first appointment with Dr. Mock is on 12 December. She states that starting this morning, she has had multiple episodes of nonbilious nonbloody vomiting. She only reports abdominal pain while vomiting but otherwise has no abdominal pain. She denies any dysuria or hematuria. She has tried eating crackers and drinking amina lillian at home, Which was ineffective. She called her OB office who called her in a prescription for promethazine, however when she took it, she vomited it right back up. She denies any fevers. She denies any sick contacts. Related Data Home Medications ?Medication ?Instructions ?Recorded ?Confirmed vits no.126-ferrous fum 1 tab PO DAILY 10/25/25 10/25/25 28 mg iron-folic acid 800 mcg tablet (Classic ) Previous Rx's ?Medication ?Instructions ?Recorded nitrofurantoin 100 mg PO BID 5 days #10 caps 11/18/25 monohydrate/macrocrystals 100 mg capsule (Macrobid) promethazine 12.5 mg tablet 12.5 mg PO TID PRN nausea and 11/18/25 vomiting #90 tabs Allergies Allergy/AdvReac Type Severity Reaction Status Date / Time No Known Allergies Allergy Verified 10/25/25 15:46 [facility] Disclaimer: The information contained in this section may have been updated after the patient was seen, as this information can be updated by other users. Medical History (Updated 11/18/25 @ 22:19 by Duke Sinha MD) Patient desires Irregular periods/menstrual cycles Clogged duct, GERD (gastroesophageal reflux disease) Surgical History No history of previous surgery Family History Grandfather Hypertension Diabetes Grandmother Cancer Social History Smoking Status: Never smoker alcohol intake: current alcohol intake frequency: holidays/special occasions only substance use type: denies use current occupational status: employed Travel in the last 8 weeks?: None Have you lived/traveled outside US in past 30 days?: No Contact w/someone who lives/traveled outside US past 30 days?: No Exposure to someone with infectious disease in past 14 days?: No Do you have a fever (greater than 100.4 F or 38 C)?: No Have you tested positive for COVID-19?: No Exposed to someone with COVID-19 in past 14 days?: No Do you have a sore throat?: No Do you have a cough?: No Do you have any weakness?: No Do you have any diarrhea?: No Are you experiencing any unusual bleeding?: No Do you have any muscle aches/pain?: No Do you have any abdominal pain?: No Are you experiencing loss of taste or smell?: No Other Medical History Have you received the Flu Vaccine for this season: No Have you received the Pneumonia Vaccine: No ROS Obtained: Yes Systems reviewed as appropriate & no additional complaints except as documented Physical Exam General General appearance: alert and in no apparent distress Comment: Ill but nontoxic-appearing Head Head exam: atraumatic Eye Eye exam: Present normal appearance ENT ENT exam: Present normal external ear exam Neck Neck exam: Present full ROM Chest Chest inspection: Present symmetric chest wall rise Respiratory Respiratory exam: Present normal lung sounds bilaterally; Absent respiratory distress, wheezes or stridor Cardiovascular Cardiovascular exam: Present regular rate and normal rhythm Abdominal Exam Abdominal exam: Present soft; Absent distention, tenderness, guarding or rigidity Extremities Exam Extremities exam: Present normal inspection Back Exam Back exam: Present normal inspection Neurological Exam Neurological exam: Present alert and oriented X3 Psychiatric Psychiatric exam: Present normal affect Skin Skin exam: Present warm and dry Medical Decision Making Medical Records Screening: Per USPSTF and CDC recommendations, given the prevalence of disease in our region, it is our hospital?s policy to screen for HIV and viral Hepatitis for all patients aged 18 and over and those with ongoing risk factors. Ridge Inquiry Pt receiving controlled substance: No Vital Signs: 11/18/25 21:07 11/18/25 21:30 11/18/25 22:45 Temperature 98.9 F 98.9 F Temperature Source Oral Oral Pulse Rate 80 76 Pulse Rate [Right] 101 H Respiratory Rate 16 16 16 Blood Pressure 100/58 L 101/61 L Blood Pressure [Right Arm] 111/82 Blood Pressure Mean [Right Arm] 91 Blood Pressure Source Automatic Cuff Blood Pressure Source [Right Arm] Automatic Cuff Blood Pressure Position Sitting Blood Pressure Position [Right Arm] Sitting 02 Sat by Pulse Oximetry 99 100 Oxygen Delivery Method Room Air Room Air Lab Data Lab Results 11/18/25 21:09: WBC 9.6, RBC 4.69, Hgb 14.2, Hct 41.2, MCV 87.8, MCH 30.3, MCHC 34.5, RDW 12.4, Plt Count 222, MPV 11.4 H, Neut % (Auto) 83.5 H, Lymph % (Auto) 10.8, Yates % (Auto) 5.1, Eos % (Auto) 0.0 L, Baso % (Auto) 0.4, Neut # (Auto) 8.0 H, Lymph # (Auto) 1.0, Yates # (Auto) 0.5, Eos # (Auto) 0.0, Baso # (Auto) 0.0, Sodium 138, Potassium 4.2, Chloride 105, Carbon Dioxide 19 L, Anion Gap 18.2 H, BUN 18 H, Creatinine 0.70, Estimated Creat Clear 111, Estimated GFR 97, Est GFR ( Amer) 117, Glucose 82, Calcium 10.3 H, Total Bilirubin 0.8, AST 26, ALT 17, Alkaline Phosphatase 61, Total Protein 8.9 H, Albumin 5.2 H, Globulin 3.7 H, Albumin/Globulin Ratio 1.4, Lipase 42, HCG, Quant 17782 H 11/18/25 21:39: Urine Color Yellow, Urine Appearance Sl cloudy, Urine pH 6.0, Ur Specific [place] >= 1.030, Urine Protein Negative, Urine Glucose (UA) Negative, Urine Ketones 3+, Urine Blood Negative, Urine Nitrate Negative, Urine Bilirubin Negative, Urine Urobilinogen 0.2, Ur Leukocyte Esterase Negative, Urine RBC 10-20, Urine WBC 5-10, Ur Squamous Epith Cells 5-10, Urine Bacteria 3+, Urine Mucus 4+ 11/18/25 21:09 11/18/25 21:09 Orders (Tests/Meds): ED MEDICATIONS Discontinued Medications Generic Name Dose Route Start Last Admin Trade Name Clint PRN Reason Stop Dose Admin Sodium Chloride 1,000 mls @ 999 mls/hr 11/18/25 21:11 11/18/25 22:18 Sod Chlor 0.9% 1000ml Bag IV 11/18/25 22:11 Infused .Q1H1M ONE Infusion Promethazine HCl 12.5 mg 11/18/25 21:11 11/18/25 21:16 Promethazine Hcl 25mg/Ml 1ml Vial IV 11/18/25 21:12 12.5 mg ONCE ONE Administration Sodium Chloride 25 ml 11/18/25 21:11 11/18/25 21:16 Sodium Chloride 0.9% 25ml Bag IV 11/18/25 21:12 25 ml ONCE ONE Administration ORDERS Category Date Time Status Beta HCG, Quant [HCG,Quantitative] Stat Lab 11/18/25 21:09 Completed CBC w/Auto Diff [Complete Blood Count Auto Diff] Stat Lab 11/18/25 21:09 Completed CMP [Comprehensive Metabolic Panel] Stat Lab 11/18/25 21:09 Completed Lipase Stat Lab 11/18/25 21:09 Completed UA [Urinalysis and Microscopic] Stat Lab 11/18/25 21:39 Completed Urine Culture Stat Micro 11/18/25 21:39 Received Medical Decision Narrative: Brenda Arzate is a 30y female G2, P1 who presents to the emergency department for complaints of nausea and vomiting while approximately 6 weeks . Patient states that her last menstrual period was on October 04. She has had positive home test and blood test confirming . Her first appointment with Dr. Mock is on 12 December. She states that starting this morning, she has had multiple episodes of nonbilious nonbloody vomiting. She only reports abdominal pain while vomiting but otherwise has no abdominal pain. She denies any dysuria or hematuria. She has tried crackers, amina lillian at home, Which was ineffective. She called her OB office who called her in a prescription for promethazine, however when she took it, she vomited it right back up. She denies any fevers. She denies any sick contacts. On arrival, patient is normotensive, borderline tachycardic, afebrile, breathing comfortably on room air with appropriate oxygen saturation. Physical exam, stated above, revealed nontoxic-appearing female in no distress. She does appear mildly dehydrated. Abdomen is soft, nontender nondistended. Cardiopulmonary exam with no murmurs or rubs. No wheezing, rales or rhonchi. Differential diagnosis includes, but is not limited to: Hyperemesis gravidarum, acute pancreatitis, gastritis, electrolyte derangement, dehydration, among others. The most morbid conditions were considered and workup was based on these. Workup in the Emergency Department included: Hematologic labs, urine studies, quantitative beta-hCG. Will administer 1 L normal saline as well as 12.5 mg of IV promethazine Patient's labs are reassuring. No leukocytosis, no anemia, electrolytes within normal limits. Mildly elevated anion gap of 18.2. BUN very slightly elevated 18 but creatinine normal at 0.7. Liver enzymes and bilirubin within normal limits. Lipase normal at 42. Quantitative beta-hCG is continuing to elevate appropriately and is now 74,289. Urinalysis shows 3+ bacteria, 10-20 red blood cells and 3+ urine ketones (likely from starvation ketosis ). Patient has 5-10 white blood cells. I do feel that patient likely has a somatic bacteria of and would benefit from course of antibiotics. Will prescribe course of Macrobid On reassessment, patient remains in stable condition she is eager to get home. She has not had any recurrence of her vomiting here. She has been able to tolerate crackers and amina lillian. I do feel that she is appropriate for discharge at this time with follow-up with her OB physician as scheduled. Recommended she continue to take promethazine as prescribed by her OB and consider Unisom and B6 if this does not work. Return precautions were given. All questions were answered. She demonstrated understanding and was agreement with this plan and she was subsequently discharged from the emergency department in stable condition. Critical Care Critical Care Time Critical Care Time: No
[2025-11-18] MEDS: 0.9 % SODIUM CHLORIDE 1000ML 1,000 ML 999 ML IV (21:15)
[2025-11-18 21:16] LABS: Hematocrit 41.2 % (37.0-47.0); Hemoglobin 14.2 g/dL (12.2-16.2); Immature Granulocytes % 0.2 %; Mean Corpuscular HGB Conc 34.5 g/dL (31.8-35.4); Mean Corpuscular Hemoglobin 30.3 pg (27.0-31.2); Mean Corpuscular Volume 87.8 fl (81-99); Nucleated Red Blood Cells % 0 %; Platelet Count 222 K/mm3 (142-424); Red Blood Count 4.69 M/mm3 (4.20-5.40); Red Cell Distribution Width-SD 39.6 fL; White Blood Count 9.6 K/mm3 (4.8-10.8)
[2025-11-18] MEDS: PROMETHAZINE HCL 25MG/ML 1ML VIAL 12.5 MG IV (21:16)
[2025-11-18] MEDS: SODIUM CHLORIDE 0.9% 25ML BAG 25 ML IV (21:16)
[2025-11-18 21:20] LABS: Chloride 105 mmol/L (98-107)
[2025-11-18 21:21] LABS: Albumin Level 5.2 g/dl (3.5-5.0); Potassium 4.2 mmoL/L (3.5-5.1); Sodium 138 mmol/L (136-145)
[2025-11-18 21:23] LABS: Blood Urea Nitrogen 18 mg/dl (7-17); Creatinine Clearance Estimated 111 mL/min (50-200); Creatinine,Serum 0.70 mg/dl (0.52-1.04); Estimated Glomerular Filt Rate 97 ml/min (>60); GFR (African American) 117 ML/MIN (>60)
[2025-11-18 21:24] LABS: Alanine Aminotransferase 17 U/L (12-78); Albumin/Globulin Ratio 1.4 (1.1-1.8); Alkaline Phosphatase 61 U/L (38-126); Anion Gap 18.2 mEq/L (5-15); Aspartate Amino Transferase 26 U/L (14-36); Bilirubin,Total 0.8 mg/dl (0.2-1.3); Calcium 10.3 mg/dl (8.4-10.2); Carbon Dioxide 19 mmol/L (22.0-30.0); Globulin 3.7 g/dL (1.3-3.2); Glucose 82 mg/dl (74-100); Total Protein,Serum 8.9 g/dl (6.3-8.2)
[2025-11-18 21:29] LABS: Lipase 42 U/L (23-300)
[2025-11-18 21:30] VITALS: BP 100/58; PULSE 80; RESP 16; O2SAT 100
[2025-11-18 21:44] LABS: Microscopic, Urine URINE MICROSCOPIC (MICROSCOPIC)
[2025-11-18 21:45] LABS: Color,Urine YELLOW (Yellow); Glucose,Urine (UA) Negative (Negative); Ketones,Urine 3+ (Negative); Leukocyte Esterase,Urine Negative (Negative); PH,Urine 6.0 (5.0-8.5); Protein,Urine Negative (Negative); Specific Gravity, Urine >= 1.030 (1.005-1.030); Urobilinogen,Urine 0.2 EU/dl (0.2)
--- OUTSIDE RECORDS SUMMARY | 2025-11-18 21:45 | XMS_ITS | Patient Health Record ---
Author Organization [facility] Address [address] [place] [address] Care Team Providers Care Diffusion Furnace Operator Name Role Phone Nicolle Piedra Primary Care Provider Nicolle Medina Unavailable [phone] Allergies No Known Allergies Results Component Value Reference Range Notes HEPATITIS C AB W/REFL TO HCV RNA, QN, PCR (8472) Reviewed date:02/02/2025 11:43:29 AM Interpretation: Performing Lab:[facility] [id number], [employer] [id number] Curtis Smith Notes/Report: NON-FASTING HEPATITIS C ANTIBODY NON-REACTIVE NON-REACTIVE HCV antibody was non-reactive. There is no laboratory evidence of HCV infection. In most cases, no further action is required. However, if recent HCV exposure is suspected, a test for HCV RNA (test code 45566) is suggested. For additional information please refer to [email or web address]/[email or web address] (This link is being provided for informational/ educational purposes only.) CULTURE, URINE, ROUTINE (395 ) Reviewed date:06/06/2025 09:36:15 AM Interpretation: Performing Lab:[facility] [id number] [employer], [id number] Curtis Smith Notes/Report: NON-FASTING CULTURE, URINE, ROUTINE SEE NOTE CULTURE, URINE, ROUTINE Micro Number: [id number] Test Status: Final Specimen Source: Urine Specimen Quality: Adequate Result: Mixed genital nitesh isolated. These superficial bacteria are not indicative of a urinary tract infection. No further organism identification is warranted on this specimen. If clinically indicated, recollect clean-catch, mid-stream urine and transfer immediately to Urine Culture Transport Tube. Urinalysis Reviewed date:06/01/2025 10:42:29 AM Interpretation: Performing Lab: Notes/Report: Color/Clarity yellow Leuk small Nitrite neg Urobili 0.2 Protein 30 pH 7.0 Blood large Sp. Gr. 1.015 Ketone neg Bili neg Glucose neg Reason For Referral No Information Medications Medication SIG (Take, Route, Frequency, Duration) Notes Start Date End Date Status Nitrofurantoin Monohyd Macro 100 MG 1 capsule with food Orally every 12 hrs; Duration: 7 days 06/01/2025 Active Pyridium 100 MG 2 tablets after meal s Orally Three times a day; Duration: 2 days 06/01/2025 Active Immunizations Vaccine Route Administration Date Status Comme nts Adacel (Tdap) IM Intramuscular 02/24/2017 Administered Adacel (Tdap) Unknown 03/12/2023 Administered Gardasil (HPV4) IM Intramuscular 02/24/2017 Administered Gardisil (HPV4) VFC Unknown 02/09/2015 Administered Problems Problem Type SNOMED Code ICD Code Onset Dates Problem Status W/U Status Risk Notes Problem Irritable bowel syndrome with diarrhea (857127940) Irritable bowel syndrome with diarrhea (K58.0) Active confirmed Vital Signs Heart Rate 76 /min 06/01/2025 Temperature 98.0 degrees Fahrenheit 06/01/2025 Blood pressure diastolic 76 mm Hg 06/01/2025 Height 5 ft 2 in in 06/01/2025 Blood pressure systolic 110 mm Hg 06/01/2025 Weight 134 lbs 06/01/2025 BMI 24.51 kg/m2 06/01/2025 Encounters Encounter Location Date Provider Diagnosis [facility] [address] [place] [address] 01/31/2025 Nicolle Dorothea [facility] [address] [facility] [address] [place], [place] [address] 06/01/2025 Nicolle Medina Dysuria R30.0 and Acute cystitis with hematuria N30.01 [facility] [address] [facility] [address] [place], [place] [address] 01/28/2025 Nicolle Piedra Exposure to hepatitis C Z20.5 Assessments Encounter Date Diagnosis (ICD Code) Assessment Notes Treatment Notes Treatment Clinical Notes Section Notes 01/28/2025 Exposure to hepatitis C (ICD-10 - Z20.5) 06/01/2025 Acute cystitis with hematuria (ICD-10 - N30.01) Start antibiotic for presumed UTI based on symptoms/UA results as stated above. Will follow urine culture for growth and anti-microbial sensitivities. Encouraged patient to drink plenty of fluids & stay well hydrated. Discussed return precautions to clinic/ED including fever, vomiting, new worsening abdominal or back pain, or if symptoms do not improve in 1-2 days. Patient voices understanding and is agreeable to the plan of care above. 06/01/2025 Dysuria (ICD-10 - R30.0) Plan Of Treatment Pending Test Test Name Order Date VENIPUNCT, ROUTINE* 02/19/2016 M-Vitamin B12 07/29/2024 M-Vitamin D 25 Hydroxy 07/29/2024 Insurance Providers Payer Name Payer Address Payer Phone Subscriber Number Group Number Insured Name Patient Relationship to Insured Coverage Start Date Coverage End Date [employer] [facility] [address] [address] [place] [address] [id number] Brenda Flores Self - patient is the insured Medical (General) History Medical History History ICD Code ASCUS PAP 2015 Surgical History Surgery Date(Month/Year) Childbirth 05/20/23 Hospitalization History Reason Date(Month/Year) [facility] for Childbirth
[2025-11-18 21:49] LABS: Bilirubin,Urine Negative (Negative)
[2025-11-18 22:13] LABS: Bacteria,Urine 3+ /lpf; Mucus,Urine 4+ /lpf
[2025-11-18 22:45] VITALS: BP 101/61; PULSE 76; RESP 16; TEMP 37.2; O2SAT 100
== END 2025-11-18 22:46 | disposition home or self-care (01) ==
PROVIDERS: Emergency Provider Student in an Organized Health Care Education/Training Program; PCP Nurse Practitioner Family
DX: O21.9 Vomiting of pregnancy, unspecified (principal); R82.71 Bacteriuria; Z3A.01 Less than 8 weeks gestation of pregnancy
CPT/HCPCS: 80053; 81001; 83690; 84702; 85025; 87086; 96361; 96374; 99284; J2550; J7030